=== PATIENT | female | born 1940 | race Two or more races ===

== ENCOUNTER 2016-11-04 06:54 | Day surgery (SDC) | payer MEDICARE, OTHER ==
[2016-11-04] MEDS ORDERED: CEFAZOLIN 1 G VIAL MC ONE (06:55)
[2016-11-04] MEDS ORDERED: PROPOFOL 200 MG/20 ML BOTTLE IV ONE (06:55)
[2016-11-04] MEDS ORDERED: EPHEDRINE SULFATE 50 MG/ML AMPUL MC ONE (06:55)
[2016-11-04] MEDS ORDERED: ONDANSETRON 4 MG/2 ML VIAL IV ONE (06:55)
[2016-11-04] MEDS ORDERED: IV NORMAL SALINE 1000 ML BAG IV ONE (06:55)
[2016-11-04] MEDS ORDERED: LIDOCAINE HCL 1% 20 ML VIAL MC ONE (06:55)
[2016-11-04 07:44] LABS: *BILIRUBIN,URIN NEGATIVE (NEGATIVE); *BLOOD, URINE NEGATIVE (NEGATIVE); *CLARITY,URINE SLIGHTLY CLOUDY (CLEAR); *COLOR,URINE YELLOW (YELLOW); *KETONES,URINE NEGATIVE (NEGATIVE); *PROTEIN,URINE NEGATIVE (NEGATIVE); *UROBILINOGEN,URINE 0.2 E.U./dl (NORMAL); LEUKOCYTE ESTERASE ,URINE NEGATIVE (NEGATIVE); NITRITE, URINE NEGATIVE (NEGATIVE); UGLUCOSE 2+ (NEGATIVE)
[2016-11-04 07:51] LABS: CARBON DIOXIDE 22 mmol/L (21-32); CHLORIDE 103 mmol/L (98-107); CREATININE 0.9 mg/dL (0.6-1.3); GLUCOSE 196 mg/dL (74-106); POTASSIUM 3.8 mmol/L (3.5-5.1); UREA NITROGEN, BLOOD 13 mg/dL (7-18)
[2016-11-04 08:11] LABS: BACTERIA,URINE MANY /HPF (NONE SEEN); RBC,URINE 0-3 /HPF (0-3); SQUAMOUS EPITHELIAL CELL,UR MANY /HPF (NONE SEEN); WBC,URINE 20-50 /HPF (0-3)
[2016-11-04] MEDS ORDERED: COCAINE HCL 4% TP ONE (09:43)
[2016-11-04] MEDS ORDERED: LIDOCAINE 2%-EPI 1:100,000 20 ML VIAL ONE (09:43)
[2016-11-04 10:40] LABS: HEMATOCRIT 43.7 % (37-47); HEMOGLOBIN 14.1 G/DL (12.0-16.0); MEAN CORPUSCULAR HEMOGLOBIN 25.9 UUG (27.0-31.0); MEAN CORPUSCULAR HGB CONC 32 g/dL (32.0-37.0); MEAN CORPUSCULAR VOLUME 80.4 FL (81.0-99.0); RED BLOOD CELL COUNT(AUTO) 5.43 MIL/UL (4.2-5.4); WHITE BLOOD COUNT (AUTO) 12.1 K/UL (4.0-11.2)
[2016-11-04 10:41] LABS: BASOPHILS % (AUTO) 0.3 % (0.0-2.0); EOSINOPHILS % (AUTO) 0.9 % (0.0-7.0); LYMPHOCYTES % (AUTO) 20.7 % (20.5-51.5); MONOCYTES % (AUTO) 9.2 % (0.0-11.0); NEUTROPHILS % (AUTO) 68.9 % (38.5-71.5); PLATELET COUNT (AUTO) 334 K/UL (150-450)
[2016-11-04] MEDS ORDERED: SUCCINYLCHOLINE CHLORIDE 200 MG/10 ML VIAL ONE (11:11)
[2016-11-04] MEDS ORDERED: FENTANYL CITRATE 100 MCG/2 ML AMPUL ONE (11:11)
[2016-11-04] MEDS ORDERED: BUPIVACAINE/EPI PF 0.5% 10 ML VIAL ONE (11:22)
[2016-11-04] MEDS ORDERED: MINERAL OIL/PETROLAT OPHT OINT 3.5 GM TUBE ONE (11:38)
[2016-11-04] MEDS ORDERED: NEO/POLYMYX B/DEXAME OPHT OINT 3.5 GM TUBE ONE (11:38)
[2016-11-04] MEDS ORDERED: BALANCED SALT IRRIG SOLN COMB2 15 ML IRRIG.SOLN ONE (11:53)
[2016-11-04] MEDS ORDERED: ACETAMINOPHEN ES 500 MG TABLET ONE (12:44)
== END 2016-11-04 13:45 | disposition home or self-care (01) ==
LOC: DS 06:54
PROVIDERS: ATTEND Dermatology MOHS-Micrographic Surgery
DX: H04.552 Acquired stenosis of left nasolacrimal duct (principal); E11.9 Type 2 diabetes mellitus without complications; I25.10 Atherosclerotic heart disease of native coronary artery without angina pectoris; M81.0 Age-related osteoporosis without current pathological fracture; Z88.2 Allergy status to sulfonamides; Z95.5 Presence of coronary angioplasty implant and graft
CPT/HCPCS: 36415; 68720; 71010; 80048; 81001; 82962; 85025; 85730; 93005; A4663; J0330; J0690; J2405; J3010; J3490 ×5; J7030 ×2

== ENCOUNTER 2018-11-23 08:03 | Day surgery (SDC) | payer MEDICARE, OTHER ==
[~2018-11-23 08:03] MED LIST: BALANCED SALT IRRIG SOLN COMB1 500 ML, EPINEPHRINE-PF 1:1000 1 MG IO ONE
[2018-11-23] MEDS ORDERED: IRR STERIL WATER FOR IRR 1000 ML BOTTLE IR ONE (08:04)
[2018-11-23] MEDS ORDERED: CYCLOPENTOLATE 1% OPHT DROP 2 ML BOTTLE ONE (08:25)
[2018-11-23] MEDS ORDERED: KETOROLAC 0.5% OPHT DROP 3 ML BOTTLE ONE (08:25)
[2018-11-23] MEDS ORDERED: CIPROFLOXACIN 0.3% OPHT DROP 2.5 ML BOTTLE ONE (08:25)
[2018-11-23] MEDS ORDERED: TETRACAINE HCL 0.5% OPHT DROP 2 ML BOTTLE ONE ×2 (08:25→10:19)
[2018-11-23] MEDS ORDERED: PHENYLEPHRINE 2.5% OPHT DROP 2 ML BOTTLE ONE (08:26)
[2018-11-23 08:42] LABS: BASOPHILS # (AUTO) 0.1 K/uL (0.0-8.0); EOSINOPHILS # (AUTO) 0.3 K/uL (0.0-0.7); EOSINOPHILS % (AUTO) 3.3 % (0.0-7.0); HEMATOCRIT 34.2 % (31.2-41.9); HEMOGLOBIN 11.4 g/dL (10.9-14.3); LYMPHOCYTES # (AUTO) 1.9 K/uL (20.0-40.0); LYMPHOCYTES % (AUTO) 23.4 % (20.5-51.5); MEAN CORPUSCULAR HEMOGLOBIN 27.9 uug (24.7-32.8); MEAN CORPUSCULAR HGB CONC 33 g/dL (32.3-35.6); MEAN CORPUSCULAR VOLUME 83.9 fL (75.5-95.3); MONOCYTES # (AUTO) 0.9 K/uL (2.0-10.0); MONOCYTES % (AUTO) 10.9 % (0.0-11.0); NEUTROPHILS # (AUTO) 4.9 K/uL (1.8-8.9); NEUTROPHILS % (AUTO) 61.4 % (38.5-71.5); PLATELET COUNT (AUTO) 238 K/uL (179-408); RED BLOOD CELL COUNT(AUTO) 4.08 MIL/uL (3.63-4.92)
[2018-11-23 08:49] LABS: CARBON DIOXIDE 21 mmol/L (21-32); CHLORIDE 106 mmol/L (98-107); CREATININE 0.9 mg/dL (0.6-1.3); GLUCOSE 167 mg/dL (74-106); POTASSIUM 3.9 mmol/L (3.5-5.1); UREA NITROGEN, BLOOD 20 mg/dL (7-18)
[2018-11-23 08:50] LABS: *BILIRUBIN,URIN NEGATIVE (NEGATIVE); *COLOR,URINE YELLOW (YELLOW); *KETONES,URINE NEGATIVE (NEGATIVE); *UROBILINOGEN,URINE 0.2 E.U./dl (NORMAL); LEUKOCYTE ESTERASE ,URINE 1+ (NEGATIVE); NITRITE, URINE NEGATIVE (NEGATIVE); UGLUCOSE NEGATIVE (NEGATIVE)
[2018-11-23 09:24] LABS: *BLOOD, URINE TRACE (NEGATIVE); *CLARITY,URINE HAZY (CLEAR)
[2018-11-23 09:30] LABS: BACTERIA,URINE MOD /HPF (NONE SEEN)
[2018-11-23 09:31] LABS: SQUAMOUS EPITHELIAL CELL,UR MANY /HPF (NONE SEEN)
[2018-11-23 09:36] LABS: MUCUS,URINE FEW /LPF (0-FEW)
[2018-11-23] MEDS ORDERED: MIDAZOLAM HCL 2 MG/2 ML VIAL ONE (10:09)
[2018-11-23] MEDS ORDERED: NEO/POLYMYX B/DEXAME OPHT OINT 3.5 GM TUBE ONE (10:18)
[2018-11-23] MEDS ORDERED: PILOCARPINE 1% OPHT DROP 15 ML BOTTLE ONE (10:18)
[2018-11-23] MEDS ORDERED: EPINEPHRINE 1 MG/1 ML AMP ONE (10:19)
[2018-11-23] MEDS ORDERED: BALANCED SALT IRRIG SOLN COMB2 15 ML IRRIG.SOLN ONE (10:19)
[2018-11-23] MEDS ORDERED: BUPIVACAINE PF 0.5% 30 ML VIAL ONE (10:19)
[2018-11-23] MEDS ORDERED: LIDOCAINE HCL-MPF 1% 5 ML VIAL ONE (10:19)
== END 2018-11-23 11:55 | disposition home or self-care (01) ==
LOC: DS 08:03
PROVIDERS: ATTEND Dermatology MOHS-Micrographic Surgery
DX: E11.36 Type 2 diabetes mellitus with diabetic cataract (principal); H25.89 Other age-related cataract; I25.10 Atherosclerotic heart disease of native coronary artery without angina pectoris; I10 Essential (primary) hypertension; I70.0 Atherosclerosis of aorta; Z85.3 Personal history of malignant neoplasm of breast; Z98.890 Other specified postprocedural states; Z79.84 Long term (current) use of oral hypoglycemic drugs; Z79.899 Other long term (current) drug therapy; Z88.2 Allergy status to sulfonamides
CPT/HCPCS: 36415; 66984; 71045; 80048; 81000; 81001; 82962; 85025; 85730; 87077; 87086; J0171 ×2; J2250; J3490 ×2; V2632; A4217; A4663; J3590; J7030